=== PATIENT | female | born 1990 | race African-American/Black ===

== ENCOUNTER 2016-09-07 13:48 | Emergency (ER) | payer OTHER ==
[2016-09-07 14:00] VITALS: RESP 18
--- NOTE | 2016-09-07 14:50 | ED ---
Female Urogenital HPI - General Chief complaint: Urogenital Stated complaint: Female Time Seen by Provider: 09/07/16 14:34 Source: patient, RN notes reviewed Mode of arrival: ambulatory Limitations: no limitations - History of Present Illness Initial comments: 26-year-old female presents emergency Department chief complaint of vaginal discharge. Patient states she's had a clearish whitish discharge for the past 2 days. Patient states she has a history of BV and she states it seems like that. Patient states she hasn't had any fever chills any vomiting with this. Patient is not concerned about STDs. Patient denies any changes in urination. Patient states that she just is here for treatment. Patient denies any other symptoms at this time.Patient denies any recent fever, chills, shortness of breath, chest pain, back pain, abdominal pain, nausea vomiting, numbness or tingling, dysuria or hematuria, constipation or diarrhea, headaches or visual changes, or any other current symptoms. Last Menstrual Period: 08/29/16 - Related Data Home Medications Medication Instructions Recorded Confirmed No Known Home Medications [No 09/07/16 09/07/16 Known Home Medications] Allergies Allergy/AdvReac Type Severity Reaction Status Date / Time No Known Allergies Allergy Verified 09/07/16 14:41 Review of Systems ROS Statement: Those systems with pertinent positive or pertinent negative responses have been documented in the HPI. ROS Other: All systems not noted in ROS Statement are negative. Past Medical History Past Medical History: No Reported History History of Any Multi-Drug Resistant Organisms: None Reported Past Surgical History: No Surgical Hx Reported Past Psychological History: No Psychological Hx Reported Smoking Status: Current every day smoker Past Alcohol Use History: Occasional Past Drug Use History: None Reported General Exam Limitations: no limitations General appearance: alert, in no apparent distress ENT exam: Present: normal exam, mucous membranes moist Neck exam: Present: normal inspection. Absent: tenderness, meningismus, lymphadenopathy Respiratory exam: Present: normal lung sounds bilaterally Cardiovascular Exam: Present: regular rate, normal rhythm, normal heart sounds. Absent: systolic murmur, diastolic murmur, rubs, gallop, clicks GI/Abdominal exam: Present: soft, normal bowel sounds. Absent: distended, tenderness, guarding, rebound, rigid External exam: Present: normal external exam Speculum exam: Present: vaginal discharge (Family) By manual exam: Present: normal by manual exam Extremities exam: Present: normal inspection, full ROM, normal capillary refill. Absent: tenderness, pedal edema, joint swelling, calf tenderness Back exam: Present: normal inspection Neurological exam: Present: alert, oriented X3, CN II-XII intact. Absent: motor sensory deficit Psychiatric exam: Present: normal affect, normal mood Skin exam: Present: warm, dry, intact, normal color. Absent: rash Course Vital Signs 09/07/16 13:57 Temperature 97.8 F Pulse Rate 92 Respiratory 18 Rate Blood Pressure 99/58 O2 Sat by Pulse 100 Oximetry Medical Decision Making - Medical Decision Making 26-year-old female presents emergency department with a chief complaint of what appears to be the on pelvic exam. This was a patient clindamycin gel. We discussed return parameters and follow-up. We did tested for STDs since she is not on prophylactic treatment. We discussed follow-up on these results. We discussed all the patient's questions. She stated that she understood. This time the patient will be discharged home. - Lab Data Lab Results 09/07/16 09/07/16 Range/Units 14:52 14:52 Urine Color Yellow Urine Appearance Clear (Clear) Urine pH 6.5 (5.0-8.0) Ur Specific [place] 1.023 (1.001-1.035) Urine Protein Trace H (Negative) Urine Glucose (UA) Negative (Negative) Urine Ketones Negative (Negative) Urine Blood Negative (Negative) Urine Nitrate Negative (Negative) Urine Bilirubin Negative (Negative) Urine Urobilinogen <2.0 (<2.0) mg/dL Ur Leukocyte Esterase Trace H (Negative) Urine WBC 2 (0-5) /hpf Ur Squamous Epith Cells 2 (0-4) /hpf Amorphous Sediment Rare H (None) /hpf Urine Mucus Many H (None) /hpf Urine HCG, Qual Not Detected (Not Detectd) Disposition Clinical Impression: Bacterial vaginosis Disposition: HOME SELF-CARE Condition: Stable Instructions: Bacterial Vaginosis (ED) Additional Instructions: Please use medication as discussed. Please follow up with family doctor if symptoms have not improved over the next two days. Please return to the emergency room if your symptoms increase or worsen or for any other concerns. Referrals: Leticia Lynne MD [Primary Care Provider] - 1-2 days Time of Disposition: 15:09
[2016-09-07 15:07] LABS: Amorphous Sediment,Urine Rare /hpf; Appearance,Urine Clear (Clear); Bilirubin,Urine Negative (Negative); Glucose,Urine (UA) Negative (Negative); Ketones,Urine Negative (Negative); Leukocyte Esterase,Urine Trace (Negative); Mucus,Urine Many /hpf; Nitrite,Urine Negative (Negative); PH, Urine 6.5 (5.0-8.0); Particle Count 14673; Protein,Urine Trace (Negative); Specific Gravity,Urine 1.023 (1.001-1.035); Squamous Epithelial Cell,Urine 2 /hpf (0-4); UA Billing (MACRO vs. MICRO) MICRO; Urobilinogen,Urine <2.0 mg/dL (<2.0); WBC,Urine 2 /hpf (0-5)
[2016-09-07 15:22] VITALS: BP 98/66; PULSE 79; TEMP 98.5
== END 2016-09-07 15:22 | disposition home or self-care (01) ==
LOC: EC 13:48
DX: A56.02 Chlamydial vulvovaginitis (principal); F17.200 Nicotine dependence, unspecified, uncomplicated
CPT/HCPCS: 81001; 81025; 87070; 87205; 87491; 87591; 87808; 99283

== ENCOUNTER 2016-10-27 10:30 | Emergency (ER) | payer OTHER ==
[2016-10-27 10:44] VITALS: TEMP 98.2
--- NOTE | 2016-10-27 11:50 | ED ---
Female Urogenital HPI - General Chief complaint: Vaginal Bleeding Stated complaint: Bleeding/poss Time Seen by Provider: 10/27/16 10:45 Source: patient, RN notes reviewed Mode of arrival: ambulatory Limitations: no limitations - History of Present Illness Initial comments: 26-year-old female presents to the emergency department with 2 complaints. First patient complains of vaginal bleeding. Patient states that she started vaginal bleeding today. Patient states that she believes she may be so she would like to be tested. Patient states her second complaint she's noticed a nodule on the right breast. Patient states that she hasn't had any drainage or discharge from the breast. Patient states that it is not tender to touch. Patient has any redness or swelling over the area. Patient admits to history of this in the past was told it wasn't inflamed. But states she wanted the splint checked as well. Patient stated she is not currently having any other symptoms.Patient denies any recent fever, chills, shortness of breath, chest pain, back pain, abdominal pain, nausea vomiting, numbness or tingling, dysuria or hematuria, constipation or diarrhea, headaches or visual changes, or any other current symptoms. Last Menstrual Period: 09/24/16 - Related Data Home Medications Medication Instructions Recorded Confirmed No Known Home Medications [No 09/07/16 10/27/16 Known Home Medications] Allergies Allergy/AdvReac Type Severity Reaction Status Date / Time No Known Allergies Allergy Verified 10/27/16 11:10 Review of Systems ROS Statement: Those systems with pertinent positive or pertinent negative responses have been documented in the HPI. ROS Other: All systems not noted in ROS Statement are negative. Past Medical History Past Medical History: No Reported History History of Any Multi-Drug Resistant Organisms: None Reported Past Surgical History: No Surgical Hx Reported Past Psychological History: No Psychological Hx Reported Smoking Status: Current every day smoker Past Alcohol Use History: Occasional Past Drug Use History: None Reported General Exam Limitations: no limitations General appearance: alert, in no apparent distress Head exam: Present: atraumatic, normocephalic, normal inspection ENT exam: Present: normal exam, mucous membranes moist Neck exam: Present: normal inspection. Absent: tenderness, meningismus, lymphadenopathy Respiratory exam: Present: normal lung sounds bilaterally, other (She has a nodular area to palpation of the left upper quadrant of the right breast.). Absent: respiratory distress, wheezes, rales, rhonchi, stridor Cardiovascular Exam: Present: regular rate, normal rhythm, normal heart sounds. Absent: systolic murmur, diastolic murmur, rubs, gallop, clicks Neurological exam: Present: alert, oriented X3, CN II-XII intact. Absent: motor sensory deficit Psychiatric exam: Present: normal affect, normal mood Skin exam: Present: warm, dry, intact, normal color. Absent: rash Course Vital Signs 10/27/16 10:41 Temperature 98.2 F Pulse Rate 99 Respiratory 20 Rate Blood Pressure 95/52 O2 Sat by Pulse 100 Oximetry Medical Decision Making - Medical Decision Making 26-year-old female presents emergency Department chief complaint concern for as well as a nodule noted in the right breast. A verbal report was given patient's ultrasound that showed dense breast tissue however there does not appear to be any masses or cystic lesions. He discussed follow-up with OB/ [facility] [employer]. We discussed this with the patient. We did discuss that her test is negative. Patient states that she understood. This time she'll be discharged home and all her questions have been answered. She'll be discharged. - Lab Data Lab Results 10/27/16 10/27/16 Range/Units 11:32 11:32 Urine Color Yellow Urine Appearance Cloudy H (Clear) Urine pH 8.5 H (5.0-8.0) Ur Specific [place] 1.020 (1.001-1.035) Urine Protein 1+ H (Negative) Urine Glucose (UA) Negative (Negative) Urine Ketones Negative (Negative) Urine Blood Negative (Negative) Urine Nitrate Negative (Negative) Urine Bilirubin Negative (Negative) Urine Urobilinogen <2.0 (<2.0) mg/dL Ur Leukocyte Esterase Negative (Negative) Urine WBC 1 (0-5) /hpf Ur Squamous Epith Cells 1 (0-4) /hpf Amorphous Sediment Rare H (None) /hpf Urine Mucus Rare H (None) /hpf Urine HCG, Qual Not Detected (Not Detectd) - Radiology Data Radiology results: image reviewed Disposition Clinical Impression: Irregular menses, Dense breast tissue Disposition: HOME SELF-CARE Condition: Stable Instructions: Menstruation (ED) Additional Instructions: Please use medication as discussed. Please follow up with family doctor if symptoms have not improved over the next two days. Please return to the emergency room if your symptoms increase or worsen or for any other concerns. Referrals: Leticia Lynne MD [Primary Care Provider] - 1-2 days Time of Disposition: 12:39
[2016-10-27 12:02] LABS: Amorphous Sediment,Urine Rare /hpf; Appearance,Urine Cloudy (Clear); Bilirubin,Urine Negative (Negative); Glucose,Urine (UA) Negative (Negative); Ketones,Urine Negative (Negative); Leukocyte Esterase,Urine Negative (Negative); Mucus,Urine Rare /hpf; Nitrite,Urine Negative (Negative); PH, Urine 8.5 (5.0-8.0); Particle Count 19374; Protein,Urine 1+ (Negative); Squamous Epithelial Cell,Urine 1 /hpf (0-4); UA Billing (MACRO vs. MICRO) MICRO; Urobilinogen,Urine <2.0 mg/dL (<2.0); WBC,Urine 1 /hpf (0-5)
--- NOTE | 2016-10-27 12:48 | ED ---
Medical Decision Making - Medical Decision Making Plan discharge patient states that she has had vaginal discharge. Patient underwent a pelvic exam with did not show any adnexal tenderness or mass really no discharge on exam she states it was a fishy odor yesterday. She has a history of V. tach. We will treat for that she also states infection. We will give her dose of Diflucan for that as well. - Lab Data Lab Results 10/27/16 10/27/16 Range/Units 11:32 11:32 Urine Color Yellow Urine Appearance Cloudy H (Clear) Urine pH 8.5 H (5.0-8.0) Ur Specific [place] 1.020 (1.001-1.035) Urine Protein 1+ H (Negative) Urine Glucose (UA) Negative (Negative) Urine Ketones Negative (Negative) Urine Blood Negative (Negative) Urine Nitrate Negative (Negative) Urine Bilirubin Negative (Negative) Urine Urobilinogen <2.0 (<2.0) mg/dL Ur Leukocyte Esterase Negative (Negative) Urine WBC 1 (0-5) /hpf Ur Squamous Epith Cells 1 (0-4) /hpf Amorphous Sediment Rare H (None) /hpf Urine Mucus Rare H (None) /hpf Urine HCG, Qual Not Detected (Not Detectd) Disposition Clinical Impression: Irregular menses, Dense breast tissue, Bacterial vaginosis Disposition: HOME SELF-CARE Condition: Stable Instructions: Menstruation (ED) Additional Instructions: Please use medication as discussed. Please follow up with family doctor if symptoms have not improved over the next two days. Please return to the emergency room if your symptoms increase or worsen or for any other concerns. Prescriptions: Fluconazole [Diflucan] 150 mg PO ONCE #1 tab metroNIDAZOLE 0.75% VAGINAL [Metrogel Vaginal] 1 applic VAGINAL HS #7 tube Referrals: Leticia Lynne MD [Primary Care Provider] - 1-2 days Time of Disposition: 12:47
[2016-10-27 12:58] VITALS: BP 102/53; PULSE 72; RESP 16
--- NOTE | 2016-10-27 14:33 | USB ---
Reason for exam: clinical finding. US Breast Limited RT Right breast ultrasound demonstrates no cystic or solid lesion seen at the 2 o'clor or 12 o'clock sites of palpable abnormality. Scanned from 12-3 o'clock. These results were verbally communicated with the patient and result sheet given to the patient on 10/27/16. ASSESSMENT: Negative, BI-RAD 1 RECOMMENDATION: Routine screening mammogram of both breasts at age 39. (unless clinical indication to start sooner) Manage on a clinical basis with regard to any suspicious palpable sites.
[2016-10-28 10:31] LABS: Chlamydia/GC Source Vaginal
== END 2016-10-27 12:58 | disposition home or self-care (01) ==
LOC: EC 10:30
DX: N92.6 Irregular menstruation, unspecified (principal); R92.2 Inconclusive mammogram; F17.200 Nicotine dependence, unspecified, uncomplicated; N76.0 Acute vaginitis
CPT/HCPCS: 81001; 81025; 87070; 87205; 87491; 87591; 87808; 99284

== ENCOUNTER 2017-02-10 19:00 | Emergency (ER) | payer OTHER ==
--- NOTE | 2017-02-10 20:35 | ED ---
Female Urogenital HPI - General Chief complaint: Urogenital Stated complaint: vaginal discharge, preg Time Seen by Provider: 02/10/17 19:35 Source: patient, RN notes reviewed Mode of arrival: ambulatory Limitations: no limitations - History of Present Illness Initial comments: Patient is 26-year-old female presents to the emergency room for evaluation abnormal vaginal discharge. Patient states over the past 4 days she been having watery vaginal discharge. Patient states she does have a history of bacterial vaginosis. Patient states feels like she has it again. Patient also she's been developing lower pelvic pain. Patient does state that she recently found out she was week and a half ago. Patient takes her last menstrual cycle was 12/09/2016. Patient states she had 2 previous pregnancies both vaginal births. Patient denies any history of ectopic pregnancies or miscarriages. Patient did state she has some vaginal spotting yesterday that has subsided today. Patient does state that she smokes 5 cigarettes per day. Patient denies nausea or vomiting. Patient denies any pain or burning during urination, trouble urinating or blood in urine. Patient does state she has a history of Chlamydia about a month and a half ago. Patient states she was already treated for it. Patient states she doesn't have an [facility] appointment until the end of this month. Patient denies chest pain shortness of breath. Patient denies nausea or vomiting. Patient denies fevers or chills. Last Menstrual Period: 12/09/16 - Related Data Home Medications Medication Instructions Recorded Confirmed No Known Home Medications [No 02/10/17 02/10/17 Known Home Medications] Allergies Allergy/AdvReac Type Severity Reaction Status Date / Time No Known Allergies Allergy Verified 02/10/17 21:24 Review of Systems ROS Statement: Those systems with pertinent positive or pertinent negative responses have been documented in the HPI. ROS Other: All systems not noted in ROS Statement are negative. Past Medical History Past Medical History: No Reported History History of Any Multi-Drug Resistant Organisms: None Reported Past Surgical History: No Surgical Hx Reported Past Psychological History: No Psychological Hx Reported Smoking Status: Current every day smoker Past Alcohol Use History: Occasional Past Drug Use History: None Reported General Exam - General Exam Comments Initial Comments: laying in exam room, no acute distress. Limitations: no limitations General appearance: alert, in no apparent distress Head exam: Present: atraumatic, normocephalic, normal inspection Eye exam: Present: normal appearance, PERRL, EOMI Pupils: Present: normal accommodation ENT exam: Present: normal exam Neck exam: Present: normal inspection Respiratory exam: Present: normal lung sounds bilaterally. Absent: respiratory distress Cardiovascular Exam: Present: regular rate, normal rhythm, normal heart sounds GI/Abdominal exam: Present: soft, normal bowel sounds. Absent: distended, tenderness, guarding, rebound, rigid External exam: Present: normal external exam Speculum exam: Present: vaginal discharge By manual exam: Present: normal by manual exam Extremities exam: Present: normal inspection Back exam: Present: normal inspection Neurological exam: Present: alert, oriented X3, CN II-XII intact, normal gait Psychiatric exam: Present: normal affect, normal mood Skin exam: Present: warm, dry, intact, normal color. Absent: rash Course Vital Signs 02/10/17 02/10/17 19:30 23:01 Temperature 99.1 F 98.9 F Pulse Rate 80 79 Respiratory 16 18 Rate Blood Pressure 105/51 116/56 O2 Sat by Pulse 100 98 Oximetry Medical Decision Making - Medical Decision Making Patient is a 26-year-old female presents to the emergency room for evaluation of vaginal discharge. Patient also states and having abdominal pain. Ultrasound showed viable at 8 weeks, 2 days. Urinalysis shows no acute findings. Genital cultures pending. Results discussed with patient. Patient states she understands everything that was discussed with her. Return parameters discussed. Case discussed with Dr. Kan. - Lab Data Lab Results 02/10/17 02/10/17 02/10/17 Range/Units 20:40 20:40 20:45 HCG, Quant >733056.0 mIU/mL Urine Color Yellow Urine Appearance Clear (Clear) Urine pH 6.5 (5.0-8.0) Ur Specific [place] 1.020 (1.001-1.035) Urine Protein Negative (Negative) Urine Glucose (UA) Negative (Negative) Urine Ketones Negative (Negative) Urine Blood Negative (Negative) Urine Nitrite Negative (Negative) Urine Bilirubin Negative (Negative) Urine Urobilinogen <2.0 (<2.0) mg/dL Ur Leukocyte Esterase Negative (Negative) Blood Type A Positive Blood Type Recheck No Disposition Clinical Impression: Vaginal Discharge, Disposition: HOME SELF-CARE Condition: Good Instructions: Vaginal Discharge (ED) Additional Instructions: Take Tylenol as needed for pain. Please follow-up with [facility]. If any new symptom arises or symptoms worsen, return to ER as soon as possible. Referrals: Leticia Lynne MD [Primary Care Provider] - 1-2 days Time of Disposition: 22:49
[2017-02-10 21:02] LABS: Appearance,Urine Clear (Clear); Bilirubin,Urine Negative (Negative); Glucose,Urine (UA) Negative (Negative); Ketones,Urine Negative (Negative); Leukocyte Esterase,Urine Negative (Negative); Nitrite,Urine Negative (Negative); PH, Urine 6.5 (5.0-8.0); Protein,Urine Negative (Negative); UA Billing (MACRO vs. MICRO) CHEM; Urobilinogen,Urine <2.0 mg/dL (<2.0)
--- NOTE | 2017-02-10 21:33 | US ---
EXAMINATION TYPE: US OB <= 14 wk fetus DATE OF EXAM: 02/10/2017 COMPARISON: NONE CLINICAL HISTORY: Pain. EXAM PERFORMED: Transabdominal (TA) EXAM MEASUREMENTS: GESTATIONAL AGE / DATING Physician Established: Not established Dates by LMP: (9 weeks/0 days) EDC: 09/15/2017 Dates by First Scan: No previous Dates by Current Scan for: (8 weeks/2 days) EDC: 09/20/2017 MATERNAL ANATOMY Uterus: 10.2 x 7.0 x 7.5 cm Right Ovary: 3.2 x 2.1 x 2.2 cm Left Ovary: 2.7 x 1.5 x 2.3 cm Post CDS / Adnexa: wnl Presence of free fluid: No Presence of corpus luteal cyst: Yes, right ovary measuring 1.6 x 1.3 x 1.7 cm GESTATION / SURVEY CRL: 1.78 cm (8 weeks/2 days) Yolk Sac (normal less than 6mm): 3 mm Heart Rate: 163 bpm Rhythm: Normal IUP: Viable IUP Date of LMP: 12/09/2016 Beta HcG (if available): Not available at time of exam Viable IUP with an WILFREDO of 09/20/2017 IMPRESSION: The ultrasound gestational age is 8 weeks 2 days. I see no definite complicating process.
[2017-02-10 23:01] VITALS: BP 116/56; PULSE 79; RESP 18; TEMP 98.9
== END 2017-02-10 23:03 | disposition home or self-care (01) ==
LOC: EC 19:00
DX: O99.89 Other specified diseases and conditions complicating pregnancy, childbirth and the puerperium (principal); O99.331 Smoking (tobacco) complicating pregnancy, first trimester; N89.8 Other specified noninflammatory disorders of vagina; R10.2 Pelvic and perineal pain; F17.200 Nicotine dependence, unspecified, uncomplicated; Z3A.08 8 weeks gestation of pregnancy
CPT/HCPCS: 36415; 76801; 81003; 84702; 86900; 86901; 87070; 87086; 87205; 87491; 87591; 99284

== ENCOUNTER 2017-03-08 20:09 | Emergency (ER) | payer OTHER ==
[2017-03-08] MEDS ORDERED: KETOROLAC 30 MG/ML 1 ML VIAL IVP STA (20:31)
[2017-03-08] MEDS ORDERED: SODIUM CHLORIDE 0.9% 1,000 ML IV ONE (20:34)
--- NOTE | 2017-03-08 20:34 | ED ---
Abdominal Pain HPI - General Chief Complaint: Abdominal Pain Stated Complaint: Abd Pain Time Seen by Provider: 03/08/17 20:25 Source: patient Mode of arrival: ambulatory Limitations: no limitations - History of Present Illness Initial Comments: This is a 26-year-old female who presents emergency department for lower abdominal pain. She states that it started earlier today and is gradually worsened. She describes it as a sharp stabbing pain that radiates to her right back. She denies any associated nausea, vomiting, diarrhea, vaginal bleeding, vaginal discharge, dysuria, or hematuria. She states that she had an elective approximately 3 weeks ago. She came in today because the pain was becoming worse. She denies any other complaints. - Related Data Previous Rx's Medication Instructions Recorded Acetaminophen with Codeine 1 tab PO Q4H PRN #15 tab 03/08/17 [Tylenol w/codeine #3] Allergies Allergy/AdvReac Type Severity Reaction Status Date / Time No Known Allergies Allergy Verified 03/08/17 20:47 Review of Systems ROS Statement: Those systems with pertinent positive or pertinent negative responses have been documented in the HPI. ROS Other: All systems not noted in ROS Statement are negative. Past Medical History Past Medical History: No Reported History History of Any Multi-Drug Resistant Organisms: None Reported Past Surgical History: No Surgical Hx Reported Past Psychological History: No Psychological Hx Reported Smoking Status: Current every day smoker Past Alcohol Use History: Occasional Past Drug Use History: None Reported General Exam - General Exam Comments Initial Comments: Constitutional: Awake alert Appears comfortable Head: Normocephalic atraumatic Eyes: no conjunctival injection No scleral icterus EOMI Neck: No JVD Supple Heart: Regular rate rhythm normal S1-S2 no murmurs Lungs: Clear to auscultation bilaterally No wheezing No rales Abdomen: Soft nondistended tenderness to palpation in the bilateral pelvis right greater than left Extremities: Non edematous DP pulses intact Radial pulses intact Neuro: A&Ox3 No focal neurologic deficits Psych: Appropriate mood and affect Limitations: no limitations Course Vital Signs 03/08/17 03/08/17 20:18 22:05 Temperature 99.2 F Pulse Rate 115 H 84 Respiratory 20 18 Rate Blood Pressure 109/63 101/60 O2 Sat by Pulse 100 100 Oximetry Medical Decision Making - Medical Decision Making This is a 26-year-old female presents emergency department for pelvic pain. She is found to have a ruptured right hemorrhagic ovarian cyst. No evidence for torsion. She did have a positive hCG however this is down trending from previous and she had an elective 3 weeks ago. Her hCG was 98. I did speak with OB on-call, Dr. Carson who stated that this was consistent with her recent . Going to send her home with Tylenol 3 and she can follow- up with her [employer]. If she has worsening or changing symptoms she can return emergency Department. All questions were answered. - Lab Data Result diagrams: 03/08/17 21:04 03/08/17 21:04 Lab Results 03/08/17 03/08/17 03/08/17 Range/Units 21:04 21:04 21:04 WBC 13.8 H (3.8-10.6) k/uL RBC 4.02 (3.80-5.40) m/uL Hgb 13.2 (11.4-16.0) gm/dL Hct 37.7 (34.0-46.0) % MCV 93.6 (80.0-100.0) fL MCH 32.9 (25.0-35.0) pg MCHC 35.1 (31.0-37.0) g/dL RDW 12.4 (11.5-15.5) % Plt Count 174 (150-450) k/uL Neutrophils % 74 % Lymphocytes % 18 % Monocytes % 3 % Eosinophils % 3 % Basophils % 0 % Neutrophils # 10.1 H (1.3-7.7) k/uL Lymphocytes # 2.5 (1.0-4.8) k/uL Monocytes # 0.5 (0-1.0) k/uL Eosinophils # 0.4 (0-0.7) k/uL Basophils # 0.0 (0-0.2) k/uL Sodium 140 (137-145) mmol/L Potassium 4.3 (3.5-5.1) mmol/L Chloride 109 H (98-107) mmol/L Carbon Dioxide 21 L (22-30) mmol/L Anion Gap 10 mmol/L BUN 13 (7-17) mg/dL Creatinine 0.66 (0.52-1.04) mg/dL Est GFR (MDRD) Af Amer >60 (>60 ml/min/1.73 sqM) Est GFR (MDRD) Non-Af >60 (>60 ml/min/1.73 sqM) Glucose 82 (74-99) mg/dL Calcium 8.9 (8.4-10.2) mg/dL HCG, Quant mIU/mL Urine Color Urine Appearance (Clear) Urine pH (5.0-8.0) Ur Specific [place] (1.001-1.035) Urine Protein (Negative) Urine Glucose (UA) (Negative) Urine Ketones (Negative) Urine Blood (Negative) Urine Nitrite (Negative) Urine Bilirubin (Negative) Urine Urobilinogen (<2.0) mg/dL Ur Leukocyte Esterase (Negative) Urine RBC (0-5) /hpf Urine WBC (0-5) /hpf Ur Squamous Epith Cells (0-4) /hpf Urine Bacteria (None) /hpf Urine Mucus (None) /hpf Urine HCG, Qual Detected (Not Detectd) 03/08/17 03/08/17 Range/Units 21:04 21:04 WBC (3.8-10.6) k/uL RBC (3.80-5.40) m/uL Hgb (11.4-16.0) gm/dL Hct (34.0-46.0) % MCV (80.0-100.0) fL MCH (25.0-35.0) pg MCHC (31.0-37.0) g/dL RDW (11.5-15.5) % Plt Count (150-450) k/uL Neutrophils % % Lymphocytes % % Monocytes % % Eosinophils % % Basophils % % Neutrophils # (1.3-7.7) k/uL Lymphocytes # (1.0-4.8) k/uL Monocytes # (0-1.0) k/uL Eosinophils # (0-0.7) k/uL Basophils # (0-0.2) k/uL Sodium (137-145) mmol/L Potassium (3.5-5.1) mmol/L Chloride (98-107) mmol/L Carbon Dioxide (22-30) mmol/L Anion Gap mmol/L BUN (7-17) mg/dL Creatinine (0.52-1.04) mg/dL Est GFR (MDRD) Af Amer (>60 ml/min/1.73 sqM) Est GFR (MDRD) Non-Af (>60 ml/min/1.73 sqM) Glucose (74-99) mg/dL Calcium (8.4-10.2) mg/dL HCG, Quant 98.7 mIU/mL Urine Color Yellow Urine Appearance Cloudy H (Clear) Urine pH 7.0 (5.0-8.0) Ur Specific [place] 1.023 (1.001-1.035) Urine Protein Negative (Negative) Urine Glucose (UA) Negative (Negative) Urine Ketones Negative (Negative) Urine Blood Negative (Negative) Urine Nitrite Negative (Negative) Urine Bilirubin Negative (Negative) Urine Urobilinogen <2.0 (<2.0) mg/dL Ur Leukocyte Esterase Negative (Negative) Urine RBC <1 (0-5) /hpf Urine WBC 1 (0-5) /hpf Ur Squamous Epith Cells 2 (0-4) /hpf Urine Bacteria Rare H (None) /hpf Urine Mucus Rare H (None) /hpf Urine HCG, Qual (Not Detectd) Disposition Clinical Impression: Hemorrhagic ovarian cyst Disposition: HOME SELF-CARE Condition: Stable Instructions: Ovarian Cyst (ED) Prescriptions: Acetaminophen with Codeine [Tylenol w/codeine #3] 1 tab PO Q4H PRN #15 tab PRN Reason: Pain Referrals: Leticia Lynne MD [Primary Care Provider] - 1-2 days Mer[facility] Lemus [facility] [REFERRING] - 1-2 days
[2017-03-08 21:17] LABS: Basophils % (A) 0 %; CHCM 33.3; Eosinophils # (A) 0.4 k/uL (0-0.7); Eosinophils % (A) 3 %; HCT 37.7 % (34.0-46.0); HDW 2.07; HGB 13.2 gm/dL (11.4-16.0); Luc # (Auto) 0.19; Luc % (Auto) 1; Lymphocytes # (A) 2.5 k/uL (1.0-4.8); Lymphocytes % (A) 18 %; MCH 32.9 pg (25.0-35.0); MCHC 35.1 g/dL (31.0-37.0); MCV 93.6 fL (80.0-100.0); Monocytes # (A) 0.5 k/uL (0-1.0); Monocytes % (A) 3 %; Neutrophils # (A) 10.1 k/uL (1.3-7.7); Neutrophils % (A) 74 %; RBC 4.02 m/uL (3.80-5.40); RDW 12.4 % (11.5-15.5); WBC 13.8 k/uL (3.8-10.6); WBC (Perox) 14.34
[2017-03-08 21:19] LABS: Appearance,Urine Cloudy (Clear); Bacteria,Urine Rare /hpf; Bilirubin,Urine Negative (Negative); Glucose,Urine (UA) Negative (Negative); Ketones,Urine Negative (Negative); Leukocyte Esterase,Urine Negative (Negative); Mucus,Urine Rare /hpf; Nitrite,Urine Negative (Negative); Particle Count 2472; Protein,Urine Negative (Negative); RBC,Urine <1 /hpf (0-5); Specific Gravity,Urine 1.023 (1.001-1.035); Squamous Epithelial Cell,Urine 2 /hpf (0-4); UA Billing (MACRO vs. MICRO) MICRO; Urobilinogen,Urine <2.0 mg/dL (<2.0); WBC,Urine 1 /hpf (0-5)
[2017-03-08 21:25] LABS: Anion Gap 10 mmol/L; Blood Urea Nitrogen 13 mg/dL (7-17); Calcium 8.9 mg/dL (8.4-10.2); Carbon Dioxide 21 mmol/L (22-30); Chloride 109 mmol/L (98-107); Glucose 82 mg/dL (74-99); Non-African American GFR(MDRD) >60 (>60 ml/min/1.73 sqM); Potassium 4.3 mmol/L (3.5-5.1); Sodium 140 mmol/L (137-145)
--- NOTE | 2017-03-08 22:00 | US ---
EXAMINATION TYPE: US transvaginal DATE OF EXAM: 03/08/2017 COMPARISON: NONE CLINICAL HISTORY: pelvic pain, worse on the right. Patient had an elective about 3 weeks ago . TECHNIQUE: Transvaginal (TV) Date of LMP: 12/09/2016 EXAM MEASUREMENTS: Uterus: 8.3 x 4.2 x 4.8 cm Endometrial Stripe: 0.5 cm Right Ovary: 7.4 x 3.9 x 4.0 cm Left Ovary: 2.9 x 1.6 x 2.3 cm 1. Uterus: Anteverted wnl 2. Endometrium: wnl 3. Right Ovary: Complex area visualized measuring 4.3 x 3.8 x 3.7 cm 4. Left Ovary: wnl, free fluid visualized adjacent to ovary Spectral, color and waveform doppler imaging shows good arterial and venous flow within the ovaries ; there is no evidence for ovarian torsion. 5. Bilateral Adnexa: Free fluid visualized bilaterally 6. Posterior cul-de-sac: Free fluid visualized IMPRESSION: There is mild to moderate free fluid in the pelvis. Normal uterus and endometrium. Normal arterial waveform is seen in the ovarian arteries on the color Doppler images. No evidence of torsio n. There is complex cystic enlargement of the right ovary that measures 7.4 x 4 cm. This could relate to hemorrhagic cyst.
[2017-03-08 22:10] VITALS: RESP 18
[2017-03-08] MEDS ORDERED: Acetaminophen-Codeine 300-30mg TAB PO STA (22:11)
[2017-03-08 22:59] VITALS: BP 102/58; PULSE 83; TEMP 97.9
== END 2017-03-08 22:58 | disposition home or self-care (01) ==
LOC: EC 20:09
DX: N83.201 Unspecified ovarian cyst, right side (principal); F17.200 Nicotine dependence, unspecified, uncomplicated
CPT/HCPCS: 36415; 80048; 85025; 81001; 81025; 84702; 93975; 76830; 96374; 96361; 99284; J1885

== ENCOUNTER 2017-06-02 18:50 | Emergency (ER) | payer OTHER ==
--- NOTE | 2017-06-02 20:17 | ED ---
General Adult HPI - General Chief complaint: Abdominal Pain Stated complaint: Vag discharge/Abd pain Time Seen by Provider: 06/02/17 19:58 Source: patient, RN notes reviewed Mode of arrival: ambulatory Limitations: no limitations - History of Present Illness Initial comments: This is a 19-year-old female who presents to the Emergency Department today with complaint of vaginal discharge and lower abdominal pain. She claims that 3 weeks ago she was in the ER at [facility] with an ovarian cyst rupture. She attributes the lower abdominal pain to the ovarian cyst rupture. She is yet to follow-up with her PCP. Describes vaginal discharge as a thin, white watery substance with an odor. She admits to having a history of frequent bacterial vaginosis infections. Patient states that she is unable to take the Flagyl oral medication. She cannot keep them down and throws them up. She requests to have metronidazole gel prescribed. She is sexually active but just finished her period so claims there is no possibility that she is . - Related Data Previous Rx's Medication Instructions Recorded metroNIDAZOLE 0.75% VAGINAL 1 applic VAGINAL HS #1 tube 06/02/17 [Metrogel Vaginal] Allergies Allergy/AdvReac Type Severity Reaction Status Date / Time No Known Allergies Allergy Verified 06/02/17 20:27 Review of Systems ROS Statement: Those systems with pertinent positive or pertinent negative responses have been documented in the HPI. ROS Other: All systems not noted in ROS Statement are negative. Past Medical History Past Medical History: No Reported History History of Any Multi-Drug Resistant Organisms: None Reported Past Surgical History: No Surgical Hx Reported Past Psychological History: No Psychological Hx Reported Smoking Status: Current every day smoker Past Alcohol Use History: Occasional Past Drug Use History: None Reported General Exam - General Exam Comments Initial Comments: General: Awake and alert, well-developed; in no apparent distress. HEENT: Head atraumatic, normocephalic. Pupils are equal, round and reactive to light. Extraocular movements intact. Oropharynx moist without erythema or exudate. Neck: Supple. Normal ROM. No JVD. Trachea midline. No adenopathy. Cardiovascular: Regular rate and rhythm. No murmurs, rubs or gallops. Chest symmetrical. Respiratory: Lungs clear to auscultation bilaterally. No wheezes, rales or rhonchi. Normal respiratory efffort with no use of accessory muscles. Abdomen: Soft, non-tender, non-distended. No rigidity, rebound or guarding. Normal bowel sounds in all 4 quadrants. : Normal external genitalia. On speculum exam vaginal tissue is normal. No vaginal bleeding. There is a moderate amount of thin, white discharge in vaginal vault and on cervical os. Cervix is clear of lesions. Fishy odor noted on exam. Skin: [place], warm and dry. Neurological: Alert and oriented x3. CN II-XII grossly intact. Speech is fluent and answers are appropriate. No focal neuro deficits. Psychiatric: Normal mood and affect. No overt signs of depression or anxiety noted. Limitations: no limitations Course Vital Signs 06/02/17 19:18 Temperature 98.7 F Pulse Rate 75 Respiratory 18 Rate Blood Pressure 106/58 O2 Sat by Pulse 100 Oximetry Medical Decision Making - Medical Decision Making Patient is doing well and is ready be discharged home. Patient has a history of frequent bacterial vaginosis infections. Physical exam correlates with diagnosis of bacterial vaginosis. Patient requests for metronidazole vaginal gel to be prescribed. Disposition Clinical Impression: Bacterial vaginosis Disposition: HOME SELF-CARE Condition: Good Instructions: Bacterial Vaginosis (ED) Prescriptions: metroNIDAZOLE 0.75% VAGINAL [Metrogel Vaginal] 1 applic VAGINAL HS #1 tube Referrals: Leticia Lynne MD [Primary Care Provider] - 1-2 days
[2017-06-02 20:45] LABS: Appearance,Urine Clear (Clear); Bilirubin,Urine Negative (Negative); Glucose,Urine (UA) Negative (Negative); Ketones,Urine Negative (Negative); Leukocyte Esterase,Urine Negative (Negative); Nitrite,Urine Negative (Negative); PH, Urine 6.5 (5.0-8.0); Protein,Urine Negative (Negative); Specific Gravity,Urine 1.017 (1.001-1.035); UA Billing (MACRO vs. MICRO) CHEM; Urobilinogen,Urine <2.0 mg/dL (<2.0)
[2017-06-02 21:33] VITALS: BP 113/70; PULSE 74; RESP 17; TEMP 98.2
== END 2017-06-02 21:43 | disposition home or self-care (01) ==
LOC: EC 18:50
DX: N76.0 Acute vaginitis (principal); F17.200 Nicotine dependence, unspecified, uncomplicated
CPT/HCPCS: 81003; 81025; 99284

== ENCOUNTER 2017-10-18 14:35 | Emergency (ER) | payer OTHER ==
[2017-10-18] MEDS ORDERED: SODIUM CHLORIDE 0.9% 500 ML IV STA (17:25)
[2017-10-18] MEDS ORDERED: ACETAMINOPHEN TAB 325 MG TAB PO STA (17:25)
--- NOTE | 2017-10-18 17:29 | ED ---
General Adult HPI - General Chief complaint: Vaginal Bleeding Stated complaint: abdominal pain/vaginal bleeding-early Time Seen by Provider: 10/18/17 17:14 Source: patient Mode of arrival: ambulatory Limitations: no limitations - History of Present Illness Initial comments: 27-year-old female patient presents to the emergency department today for evaluation of vaginal bleeding and abdominal cramping. Patient states that she had a positive urine test on Wednesday. Patient states her last period was at the end of August. Patient is A1, with elective . Patient states that yesterday she had some lower abdominal and lower back pain that seemed to be radiating into her rectum. She states that today she started spotting while at work this morning. She states that throughout the day the breathing has become a little more heavy, she has not had to change her pad yet at this point. She denies any hematuria, dysuria, urinary frequency , urinary urgency. She denies any constipation or diarrhea. Denies any nausea or vomiting. Denies any fevers or chills. Patient denies any recent rash, shortness breath, chest pain, back pain, numbness, tingling, dizziness, weakness , headache, visual changes, or any other complaints. - Related Data Home Medications Medication Instructions Recorded Confirmed No Known Home Medications [No 10/18/17 10/18/17 Known Home Medications] Allergies Allergy/AdvReac Type Severity Reaction Status Date / Time No Known Allergies Allergy Verified 10/18/17 17:28 Review of Systems ROS Statement: Those systems with pertinent positive or pertinent negative responses have been documented in the HPI. ROS Other: All systems not noted in ROS Statement are negative. Past Medical History Past Medical History: No Reported History History of Any Multi-Drug Resistant Organisms: None Reported Past Surgical History: No Surgical Hx Reported Past Psychological History: No Psychological Hx Reported Smoking Status: Current every day smoker Past Alcohol Use History: Occasional Past Drug Use History: None Reported General Exam Limitations: no limitations General appearance: alert, in no apparent distress, other (This is a well- developed, well-nourished adult female patient in no acute distress. Vital signs upon presentation are temperature 97.7F, pulse 72, respirations 18, blood pressure 98/51, pulse ox 100% on room air.) Eye exam: Present: normal appearance, PERRL, EOMI. Absent: scleral icterus, conjunctival injection, periorbital swelling ENT exam: Present: normal exam, normal oropharynx, mucous membranes moist Respiratory exam: Present: normal lung sounds bilaterally. Absent: respiratory distress, wheezes, rales, rhonchi, stridor Cardiovascular Exam: Present: regular rate, normal rhythm, normal heart sounds. Absent: systolic murmur, diastolic murmur, rubs, gallop, clicks GI/Abdominal exam: Present: soft, tenderness (Mild right lower quadrant tenderness), normal bowel sounds. Absent: distended, guarding, rebound, rigid Neurological exam: Present: alert, oriented X3, CN II-XII intact Psychiatric exam: Present: normal affect, normal mood Skin exam: Present: warm, dry, intact, normal color. Absent: rash Course Vital Signs 10/18/17 10/18/17 15:04 19:27 Temperature 97.7 F 98.2 F Pulse Rate 72 75 Respiratory 18 17 Rate Blood Pressure 98/51 110/56 O2 Sat by Pulse 100 100 Oximetry Medical Decision Making - Medical Decision Making 27-year-old female patient presents to the emergency department today for complaints of vaginal bleeding and lower abdominal cramping. Patient did have a positive test on Wednesday. Physical examination reveals some lower abdominal tenderness. Pelvic exam was performed and did show a small amount of intravaginal bleeding. There is no evidence of vaginal discharge or cervical erythema. Cultures were obtained and sent. Labs are reviewed and did show a hCG quantitative result of 1614. Urine showed a cloudy appearance with trace protein, moderate blood, 7 squamous epithelial cells, occasional bacteria and moderate mucus. This was sent for culture. Ultrasound was obtained and showed no intrauterine at this time. Did show a right ovarian cyst. I did discuss findings with the patient. Did discuss with her the possibility of a threatened . She is instructed to obtain repeat hCG level in 3 days. She is instructed to call her [employer] as soon as possible. Instructed to return here immediately for any new, worsening, or concerning symptoms. She verbalizes understanding and agrees with this plan. - Lab Data Result diagrams: 10/18/17 17:33 10/18/17 17:33 Lab Results 10/18/17 10/18/17 10/18/17 Range/Units 17:33 17:33 17:33 WBC 6.7 (3.8-10.6) k/uL RBC 4.10 (3.80-5.40) m/uL Hgb 12.2 (11.4-16.0) gm/dL Hct 39.8 (34.0-46.0) % MCV 96.9 (80.0-100.0) fL MCH 29.7 (25.0-35.0) pg MCHC 30.6 L (31.0-37.0) g/dL RDW 12.0 (11.5-15.5) % Plt Count 132 L (150-450) k/uL Neutrophils % 56 % Lymphocytes % 34 % Monocytes % 5 % Eosinophils % 4 % Basophils % 0 % Neutrophils # 3.7 (1.3-7.7) k/uL Lymphocytes # 2.3 (1.0-4.8) k/uL Monocytes # 0.3 (0-1.0) k/uL Eosinophils # 0.2 (0-0.7) k/uL Basophils # 0.0 (0-0.2) k/uL Sodium 141 (137-145) mmol/L Potassium 3.7 (3.5-5.1) mmol/L Chloride 107 (98-107) mmol/L Carbon Dioxide 26 (22-30) mmol/L Anion Gap 8 mmol/L BUN 8 (7-17) mg/dL Creatinine 0.65 (0.52-1.04) mg/dL Est GFR (MDRD) Af Amer >60 (>60 ml/min/1.73 sqM) Est GFR (MDRD) Non-Af >60 (>60 ml/min/1.73 sqM) Glucose 82 (74-99) mg/dL Calcium 9.7 (8.4-10.2) mg/dL Total Bilirubin 0.2 (0.2-1.3) mg/dL AST 19 (14-36) U/L ALT 20 (9-52) U/L Alkaline Phosphatase 44 (38-126) U/L Total Protein 7.1 (6.3-8.2) g/dL Albumin 4.1 (3.5-5.0) g/dL HCG, Quant 1614.1 mIU/mL Urine Color Urine Appearance (Clear) Urine pH (5.0-8.0) Ur Specific [place] (1.001-1.035) Urine Protein (Negative) Urine Glucose (UA) (Negative) Urine Ketones (Negative) Urine Blood (Negative) Urine Nitrite (Negative) Urine Bilirubin (Negative) Urine Urobilinogen (<2.0) mg/dL Ur Leukocyte Esterase (Negative) Urine RBC (0-5) /hpf Urine WBC (0-5) /hpf Ur Squamous Epith Cells (0-4) /hpf Urine Bacteria (None) /hpf Urine Mucus (None) /hpf Trichomonas Ag (Rapid) (Negative) Blood Type A Positive Blood Type Recheck No 10/18/17 10/18/17 Range/Units 17:40 19:25 WBC (3.8-10.6) k/uL RBC (3.80-5.40) m/uL Hgb (11.4-16.0) gm/dL Hct (34.0-46.0) % MCV (80.0-100.0) fL MCH (25.0-35.0) pg MCHC (31.0-37.0) g/dL RDW (11.5-15.5) % Plt Count (150-450) k/uL Neutrophils % % Lymphocytes % % Monocytes % % Eosinophils % % Basophils % % Neutrophils # (1.3-7.7) k/uL Lymphocytes # (1.0-4.8) k/uL Monocytes # (0-1.0) k/uL Eosinophils # (0-0.7) k/uL Basophils # (0-0.2) k/uL Sodium (137-145) mmol/L Potassium (3.5-5.1) mmol/L Chloride (98-107) mmol/L Carbon Dioxide (22-30) mmol/L Anion Gap mmol/L BUN (7-17) mg/dL Creatinine (0.52-1.04) mg/dL Est GFR (MDRD) Af Amer (>60 ml/min/1.73 sqM) Est GFR (MDRD) Non-Af (>60 ml/min/1.73 sqM) Glucose (74-99) mg/dL Calcium (8.4-10.2) mg/dL Total Bilirubin (0.2-1.3) mg/dL AST (14-36) U/L ALT (9-52) U/L Alkaline Phosphatase (38-126) U/L Total Protein (6.3-8.2) g/dL Albumin (3.5-5.0) g/dL HCG, Quant mIU/mL Urine Color Yellow Urine Appearance Cloudy H (Clear) Urine pH 6.5 (5.0-8.0) Ur Specific [place] 1.018 (1.001-1.035) Urine Protein Trace H (Negative) Urine Glucose (UA) Negative (Negative) Urine Ketones Negative (Negative) Urine Blood Moderate H (Negative) Urine Nitrite Negative (Negative) Urine Bilirubin Negative (Negative) Urine Urobilinogen <2.0 (<2.0) mg/dL Ur Leukocyte Esterase Negative (Negative) Urine RBC 2 (0-5) /hpf Urine WBC 5 (0-5) /hpf Ur Squamous Epith Cells 7 H (0-4) /hpf Urine Bacteria Occasional H (None) /hpf Urine Mucus Moderate H (None) /hpf Trichomonas Ag (Rapid) Negative (Negative) Blood Type Blood Type Recheck - Radiology Data Radiology results: report reviewed, image reviewed Ultrasound was obtained, report was reviewed in its entirety, impression by Dr. Guaman shows uterus is empty. No evidence of a gestational sac. There is a mild amount of free fluid in the cul-de-sac. Right ovarian cyst is noted. Disposition Clinical Impression: Threatened miscarriage, Vaginal bleeding affecting early Disposition: HOME SELF-CARE Condition: Good Instructions: Threatened Miscarriage (ED), First Trimester Vaginal Bleed (ED) Additional Instructions: Return in 3 days for repeat lab work. Follow-up with your [employer] as soon as possible. Return here immediately for any new, worsening, or concerning symptoms. Referrals: Leticia Lynne MD [Primary Care Provider] - 1-2 days Time of Disposition: 19:06
[2017-10-18 18:11] LABS: Basophils % (A) 0 %; Eosinophils # (A) 0.2 k/uL (0-0.7); Eosinophils % (A) 4 %; HCT 39.8 % (34.0-46.0); HGB 12.2 gm/dL (11.4-16.0); Lymphocytes # (A) 2.3 k/uL (1.0-4.8); Lymphocytes % (A) 34 %; MCH 29.7 pg (25.0-35.0); MCHC 30.6 g/dL (31.0-37.0); MCV 96.9 fL (80.0-100.0); Mean Platelet Volume 9.2; Monocytes # (A) 0.3 k/uL (0-1.0); Monocytes % (A) 5 %; Neutrophils # (A) 3.7 k/uL (1.3-7.7); Neutrophils % (A) 56 %; Platelet Count 132 k/uL (150-450); WBC 6.7 k/uL (3.8-10.6)
[2017-10-18 18:18] LABS: Appearance,Urine Cloudy (Clear); Bacteria,Urine Occasional /hpf; Bilirubin,Urine Negative (Negative); Blood,Urine Moderate (Negative); Color,Urine Yellow; Glucose,Urine (UA) Negative (Negative); Ketones,Urine Negative (Negative); Leukocyte Esterase,Urine Negative (Negative); Mucus,Urine Moderate /hpf; Nitrite,Urine Negative (Negative); PH, Urine 6.5 (5.0-8.0); Protein,Urine Trace (Negative); RBC,Urine 2 /hpf (0-5); Specific Gravity,Urine 1.018 (1.001-1.035); Squamous Epithelial Cell,Urine 7 /hpf (0-4); Urobilinogen,Urine <2.0 mg/dL (<2.0); WBC,Urine 5 /hpf (0-5)
[2017-10-18 18:19] LABS: ALT 20 U/L (9-52); AST 19 U/L (14-36); Albumin 4.1 g/dL (3.5-5.0); Alkaline Phosphatase 44 U/L (38-126); Anion Gap 8 mmol/L; Blood Urea Nitrogen 8 mg/dL (7-17); Calcium 9.7 mg/dL (8.4-10.2); Carbon Dioxide 26 mmol/L (22-30); Chloride 107 mmol/L (98-107); Glucose 82 mg/dL (74-99); Potassium 3.7 mmol/L (3.5-5.1); Sodium 141 mmol/L (137-145); Total Bilirubin 0.2 mg/dL (0.2-1.3); Total Protein 7.1 g/dL (6.3-8.2)
[2017-10-18 18:36] LABS: HCG,Quantitative Serum 1614.1 mIU/mL
--- NOTE | 2017-10-18 18:47 | US ---
EXAMINATION TYPE: US OB <= 14 wk fetus DATE OF EXAM: 10/18/2017 COMPARISON: NONE CLINICAL HISTORY: Pain. Pain EXAM PERFORMED: Transabdominal (TA) EXAM MEASUREMENTS: GESTATIONAL AGE / DATING Physician Established: Not yet established Dates by LMP: LMP unknown Dates by First Scan: No previous this is first scan Dates by Current Scan for: No IUP seen at this time MATERNAL ANATOMY Uterus: 9.6 x 6.0 x 6.4 cm Right Ovary: 3.9 x 3.2 x 3.1 cm Left Ovary: 3.0 x 1.6 x 2.2 cm Post CDS / Adnexa: WNL Presence of free fluid: Yes Presence of corpus luteal cyst: yes GESTATION / SURVEY IUP: No IUP seen at this time, endometrium measures 1.1cm with 0.2cm of fluid seen within. Beta HcG (if available): Not available at this time No IUP seen at this time. Anechoic area with echogenic area seen right ovary measuring 3.0 x 2.4x 2.3 cm. IMPRESSION: The uterus is empty. No evidence of a gestational sac. There is a mild amount of free fluid in the cu l-de-sac. Right ovarian cyst is noted.
[2017-10-18 19:28] VITALS: BP 110/56; PULSE 75; RESP 17; TEMP 98.2
[2017-10-20 14:30] LABS: C. trachomatis,PCR Negative (Neg,Equiv); Chlamydia trachomatis Source Vagina; N. gonorrhoeae,PCR Negative (Neg,Equiv); Neisseria Source Vagina
== END 2017-10-18 19:27 | disposition home or self-care (01) ==
LOC: EC 14:35
DX: O20.0 Threatened abortion (principal); O34.81 Maternal care for other abnormalities of pelvic organs, first trimester; N83.201 Unspecified ovarian cyst, right side; O99.331 Smoking (tobacco) complicating pregnancy, first trimester; F17.200 Nicotine dependence, unspecified, uncomplicated; Z3A.01 Less than 8 weeks gestation of pregnancy; Z53.29 Procedure and treatment not carried out because of patient's decision for other reasons
CPT/HCPCS: 36415; 76801; 80053; 81001; 84702; 85025; 86900; 86901; 87070; 87086; 87205; 87491; 87591; 87808; 96360; 99284

== ENCOUNTER → 2017-10-21 | Outpatient (CLI) | payer OTHER | END | disposition home or self-care (01) | LOC: LABWHC1 10:40 | PROVIDERS: ATTEND Nurse Practitioner | DX: O20.8 Other hemorrhage in early pregnancy (principal); Z3A.00 Weeks of gestation of pregnancy not specified | CPT/HCPCS: 36415; 84702 ==

== ENCOUNTER 2018-02-17 21:40 | Emergency (ER) | payer OTHER ==
[2018-02-17 21:57] VITALS: RESP 16
[2018-02-17 22:59] LABS: Basophils % (A) 0 %; Eosinophils # (A) 0.3 k/uL (0-0.7); Eosinophils % (A) 3 %; HCT 36.9 % (34.0-46.0); HGB 12.2 gm/dL (11.4-16.0); Lymphocytes # (A) 2.8 k/uL (1.0-4.8); Lymphocytes % (A) 29 %; MCHC 32.9 g/dL (31.0-37.0); MCV 94.2 fL (80.0-100.0); Mean Platelet Volume 9.2; Monocytes # (A) 0.5 k/uL (0-1.0); Monocytes % (A) 5 %; Neutrophils # (A) 5.7 k/uL (1.3-7.7); Neutrophils % (A) 61 %; Platelet Count 144 k/uL (150-450); RBC 3.92 m/uL (3.80-5.40); WBC 9.4 k/uL (3.8-10.6)
[2018-02-17 23:06] LABS: Appearance,Urine Clear (Clear); Bilirubin,Urine Negative (Negative); Blood,Urine Negative (Negative); Color,Urine Yellow; Glucose,Urine (UA) Negative (Negative); Ketones,Urine Negative (Negative); Leukocyte Esterase,Urine Negative (Negative); Nitrite,Urine Negative (Negative); PH, Urine 6.5 (5.0-8.0); Protein,Urine Negative (Negative); Specific Gravity,Urine 1.018 (1.001-1.035); Urobilinogen,Urine <2.0 mg/dL (<2.0)
--- NOTE | 2018-02-17 23:08 | ED ---
Female Urogenital HPI - General Chief complaint: Urogenital Stated complaint: early preg/spotting & cramping Time Seen by Provider: 02/17/18 22:26 Source: patient Mode of arrival: ambulatory Limitations: no limitations - History of Present Illness Initial comments: This patient is 22-year-old woman who presents to be evaluated for vaginal spotting. Patient states that she was couple of weeks late on her menstrual cycle and had taken a home test on February 06 which was positive. She states that she had been feeling premature normal until about 20 minutes before arriving here tonight, when she noted some vaginal spotting. The patient states that she had gone to urinate and then when she was wiping she noted some brownish discharge. She states that around that time she had also been having some crampy abdominal pain in the suprapubic and periumbilical area. Given the symptoms she came here to be evaluated. MD Complaint: vaginal bleeding Onset/Timin -: minutes(s) Location: suprapubic Radiation: non-radiating Severity: mild Quality: cramping Consistency: constant Improves with: none Patient : Yes - Related Data Sexually active: Yes Previous Rx's Medication Instructions Recorded Pnv No.95/Ferrous Fum/Folic AC 1 each PO DAILY #30 tablet 02/18/18 [ Multivitamin Tablet] Allergies Allergy/AdvReac Type Severity Reaction Status Date / Time No Known Allergies Allergy Verified 02/17/18 22:19 Review of Systems ROS Statement: Those systems with pertinent positive or pertinent negative responses have been documented in the HPI. ROS Other: All systems not noted in ROS Statement are negative. Constitutional: Denies: fever, chills Respiratory: Denies: cough, dyspnea Cardiovascular: Denies: chest pain, palpitations Gastrointestinal: Reports: as per HPI, abdominal pain. Denies: nausea, vomiting , diarrhea Genitourinary: Reports: discharge. Denies: dysuria, frequency, hematuria Musculoskeletal: Denies: back pain Skin: Denies: rash Neurological: Denies: headache Hematological/Lymphatic: Denies: easy bleeding Past Medical History Past Medical History: No Reported History History of Any Multi-Drug Resistant Organisms: None Reported Past Surgical History: No Surgical Hx Reported Past Psychological History: No Psychological Hx Reported Smoking Status: Current every day smoker Past Alcohol Use History: Occasional Past Drug Use History: None Reported General Exam Limitations: no limitations General appearance: alert, in no apparent distress Head exam: Present: atraumatic, normocephalic ENT exam: Present: normal oropharynx Respiratory exam: Present: normal lung sounds bilaterally. Absent: respiratory distress, wheezes, rales, rhonchi, stridor Cardiovascular Exam: Present: regular rate, normal rhythm, normal heart sounds. Absent: systolic murmur, diastolic murmur, rubs, gallop GI/Abdominal exam: Present: soft. Absent: distended, tenderness, guarding, rebound, mass External exam: Present: normal external exam, other (YARI Mcneill present). Absent : erythema, swelling, lesions, lacerations, ecchymosis Speculum exam: Present: other (Trace of brown blood present on exam. Cervix is closed. No tissue. No red blood or clotting). Absent: erythema, foreign body By manual exam: Present: uterine enlargement. Absent: cervical motion tenderness, adnexal tenderness, adnexal mass, uterine tenderness Extremities exam: Present: normal inspection, normal capillary refill. Absent: pedal edema, calf tenderness Back exam: Present: normal inspection. Absent: CVA tenderness (R), CVA tenderness (L) Skin exam: Present: warm, dry, intact, normal color. Absent: rash Course Vital Signs 02/17/18 21:53 Temperature 98.6 F Pulse Rate 75 Respiratory 16 Rate Blood Pressure 111/60 O2 Sat by Pulse 100 Oximetry Medical Decision Making - Lab Data Result diagrams: 02/17/18 22:47 02/17/18 22:47 Lab Results 02/17/18 02/17/18 02/17/18 Range/Units 22:47 22:47 22:47 WBC 9.4 (3.8-10.6) k/uL RBC 3.92 (3.80-5.40) m/uL Hgb 12.2 (11.4-16.0) gm/dL Hct 36.9 (34.0-46.0) % MCV 94.2 (80.0-100.0) fL MCH 31.0 (25.0-35.0) pg MCHC 32.9 (31.0-37.0) g/dL RDW 12.0 (11.5-15.5) % Plt Count 144 L (150-450) k/uL Neutrophils % 61 % Lymphocytes % 29 % Monocytes % 5 % Eosinophils % 3 % Basophils % 0 % Neutrophils # 5.7 (1.3-7.7) k/uL Lymphocytes # 2.8 (1.0-4.8) k/uL Monocytes # 0.5 (0-1.0) k/uL Eosinophils # 0.3 (0-0.7) k/uL Basophils # 0.0 (0-0.2) k/uL Sodium 139 (137-145) mmol/L Potassium 4.0 (3.5-5.1) mmol/L Chloride 105 (98-107) mmol/L Carbon Dioxide 22 (22-30) mmol/L Anion Gap 12 mmol/L BUN 10 (7-17) mg/dL Creatinine 0.65 (0.52-1.04) mg/dL Est GFR (CKD-EPI)AfAm >90 (>60 ml/min/1.73 sqM) Est GFR (CKD-EPI)NonAf >90 (>60 ml/min/1.73 sqM) Glucose 84 (74-99) mg/dL Calcium 9.1 (8.4-10.2) mg/dL Total Bilirubin 0.2 (0.2-1.3) mg/dL AST 23 (14-36) U/L ALT 31 (9-52) U/L Alkaline Phosphatase 41 (38-126) U/L Total Protein 6.8 (6.3-8.2) g/dL Albumin 4.1 (3.5-5.0) g/dL HCG, Quant 97788.9 mIU/mL Urine Color Urine Appearance (Clear) Urine pH (5.0-8.0) Ur Specific [place] (1.001-1.035) Urine Protein (Negative) Urine Glucose (UA) (Negative) Urine Ketones (Negative) Urine Blood (Negative) Urine Nitrite (Negative) Urine Bilirubin (Negative) Urine Urobilinogen (<2.0) mg/dL Ur Leukocyte Esterase (Negative) Blood Type A Positive Blood Type Recheck No 02/17/18 Range/Units 22:47 WBC (3.8-10.6) k/uL RBC (3.80-5.40) m/uL Hgb (11.4-16.0) gm/dL Hct (34.0-46.0) % MCV (80.0-100.0) fL MCH (25.0-35.0) pg MCHC (31.0-37.0) g/dL RDW (11.5-15.5) % Plt Count (150-450) k/uL Neutrophils % % Lymphocytes % % Monocytes % % Eosinophils % % Basophils % % Neutrophils # (1.3-7.7) k/uL Lymphocytes # (1.0-4.8) k/uL Monocytes # (0-1.0) k/uL Eosinophils # (0-0.7) k/uL Basophils # (0-0.2) k/uL Sodium (137-145) mmol/L Potassium (3.5-5.1) mmol/L Chloride (98-107) mmol/L Carbon Dioxide (22-30) mmol/L Anion Gap mmol/L BUN (7-17) mg/dL Creatinine (0.52-1.04) mg/dL Est GFR (CKD-EPI)AfAm (>60 ml/min/1.73 sqM) Est GFR (CKD-EPI)NonAf (>60 ml/min/1.73 sqM) Glucose (74-99) mg/dL Calcium (8.4-10.2) mg/dL Total Bilirubin (0.2-1.3) mg/dL AST (14-36) U/L ALT (9-52) U/L Alkaline Phosphatase (38-126) U/L Total Protein (6.3-8.2) g/dL Albumin (3.5-5.0) g/dL HCG, Quant mIU/mL Urine Color Yellow Urine Appearance Clear (Clear) Urine pH 6.5 (5.0-8.0) Ur Specific [place] 1.018 (1.001-1.035) Urine Protein Negative (Negative) Urine Glucose (UA) Negative (Negative) Urine Ketones Negative (Negative) Urine Blood Negative (Negative) Urine Nitrite Negative (Negative) Urine Bilirubin Negative (Negative) Urine Urobilinogen <2.0 (<2.0) mg/dL Ur Leukocyte Esterase Negative (Negative) Blood Type Blood Type Recheck Disposition Clinical Impression: Threatened miscarriage Disposition: HOME SELF-CARE Condition: Fair Instructions: Threatened Miscarriage (ED) Prescriptions: Pnv No.95/Ferrous Fum/Folic AC [ Multivitamin Tablet] 1 each PO DAILY # 30 tablet Is patient prescribed a controlled substance at d/c from ED?: No Referrals: Sun Perales MD [REFERRING] - 1-2 days Silvia Bejarano DO [Doctor of Osteopathic Medicine] - 1-2 days
[2018-02-17 23:11] LABS: ALT 31 U/L (9-52); AST 23 U/L (14-36); Albumin 4.1 g/dL (3.5-5.0); Alkaline Phosphatase 41 U/L (38-126); Anion Gap 12 mmol/L; Blood Urea Nitrogen 10 mg/dL (7-17); Calcium 9.1 mg/dL (8.4-10.2); Carbon Dioxide 22 mmol/L (22-30); Chloride 105 mmol/L (98-107); Glucose 84 mg/dL (74-99); Sodium 139 mmol/L (137-145); Total Bilirubin 0.2 mg/dL (0.2-1.3); Total Protein 6.8 g/dL (6.3-8.2)
[2018-02-17 23:51] LABS: HCG,Quantitative Serum 34040.9 mIU/mL
--- NOTE | 2018-02-18 00:55 | US ---
EXAMINATION TYPE: Transabdominal DATE OF EXAM: 12/07/17 COMPARISON: NONE CLINICAL HISTORY: Pain. Cramping EXAM PERFORMED: Transabdominal (TA) EXAM MEASUREMENTS: GESTATIONAL AGE / DATING Physician Established: Not yet established Dates by LMP: (5 weeks/6 days) EDC: 10/15/2018 Dates by First Scan: No previous this is first scan Dates by Current Scan for: ( 6 weeks/0 days) EDC: 10/14/2018 MATERNAL ANATOMY Uterus: 9.8 x 5.1 x 6.1 cm Right Ovary: Obscured by bowel gas Left Ovary: Obscured by bowel gas Post CDS / Adnexa: wnl Presence of free fluid: no Presence of subchorionic bleed: no GESTATION / SURVEY CRL: 0.36 cm (6 weeks/0 days) Yolk Sac (normal less than 6mm): 4mm Heart Rate: 144 bpm Rhythm: Normal IUP: Viable IUP Beta HcG (if available): 93308.9 Viable IUP 6w 0d [id number] 10/15/2018 HR 144 BPM IMPRESSION: The ultrasound gestational age is 6 weeks. No complicating process seen.
[2018-02-18 01:36] VITALS: BP 100/56; PULSE 76; TEMP 98.1
== END 2018-02-18 01:34 | disposition home or self-care (01) ==
LOC: EC 21:40
DX: O20.0 Threatened abortion (principal); O99.89 Other specified diseases and conditions complicating pregnancy, childbirth and the puerperium; N85.2 Hypertrophy of uterus; O99.331 Smoking (tobacco) complicating pregnancy, first trimester; F17.200 Nicotine dependence, unspecified, uncomplicated; Z3A.01 Less than 8 weeks gestation of pregnancy
CPT/HCPCS: 36415; 76801; 80053; 81003; 84702; 85025; 86900; 86901; 99284

== ENCOUNTER 2018-02-23 12:27 | Emergency (ER) | payer OTHER ==
[2018-02-23 12:51] VITALS: BP 95/66; PULSE 78; RESP 16; TEMP 97.8
[2018-02-23 14:18] LABS: Appearance,Urine Clear (Clear); Bilirubin,Urine Negative (Negative); Blood,Urine Negative (Negative); Color,Urine Yellow; Glucose,Urine (UA) Negative (Negative); Ketones,Urine Negative (Negative); Leukocyte Esterase,Urine Negative (Negative); Nitrite,Urine Negative (Negative); Protein,Urine Trace (Negative)
--- NOTE | 2018-02-23 14:31 | US ---
EXAMINATION TYPE: Transabdominal DATE OF EXAM: 12/07/17 COMPARISON: US 02/18/2018 CLINICAL HISTORY: Pain. Spotting. Patient states she had a tick behind her ear EXAM PERFORMED: Transabdominal (TA) EXAM MEASUREMENTS: GESTATIONAL AGE / DATING Physician Established: Not yet established Dates by LMP: (6 weeks/4 days) EDC: 10/15/2018 Dates by First Scan: (6 weeks/3 days) EDC: 10/14/2018 Dates by Current Scan for: (6 weeks/4 days) EDC: 10/15/2018 MATERNAL ANATOMY Uterus: 9.1 x 5.8 x 6.2 cm Right Ovary: 2.0 x 1.0 x 1.4 cm Left Ovary: 3.8 x 2.4 x 2.6 cm Post CDS / Adnexa: wnl Presence of free fluid: No Presence of corpus luteal cyst: Yes, left ovary measuring 2.5 x 1.6 x 2.1 cm Presence of subchorionic bleed: Yes, measuring 1.0 x 0.3 x 0.3 cm GESTATION / SURVEY CRL: 0.7 cm (6 weeks/4 days) Yolk Sac (normal less than 6mm): 2mm Heart Rate: 141 bpm Rhythm: Normal IUP: Viable IUP Date of LMP: 01/08/2018 Beta HcG (if available): 34,[id number] on 02/17/2018 Viable IUP, measurements consistent with dates. IMPRESSION: 1. Single intrauterine gestation estimated at 6 weeks 4 days gestation based on current ultrasound. T his would've a calculated EDC of 05/26/2017.
[2018-02-23 14:42] LABS: Basophils % (A) 0 %; Eosinophils # (A) 0.2 k/uL (0-0.7); Eosinophils % (A) 2 %; HCT 32.9 % (34.0-46.0); HGB 11.3 gm/dL (11.4-16.0); Lymphocytes # (A) 1.8 k/uL (1.0-4.8); Lymphocytes % (A) 21 %; MCH 31.1 pg (25.0-35.0); MCHC 34.3 g/dL (31.0-37.0); MCV 90.9 fL (80.0-100.0); Mean Platelet Volume 9.3; Monocytes # (A) 0.5 k/uL (0-1.0); Monocytes % (A) 5 %; Neutrophils # (A) 6.2 k/uL (1.3-7.7); Neutrophils % (A) 70 %; Platelet Count 127 k/uL (150-450); RBC 3.61 m/uL (3.80-5.40); WBC 8.8 k/uL (3.8-10.6)
--- NOTE | 2018-02-23 14:47 | ED ---
Female Urogenital HPI - General Chief complaint: Vaginal Bleeding Stated complaint: 6 wks preg/vaginal bleeding & tick behind ear Time Seen by Provider: 02/23/18 13:03 Source: patient, RN notes reviewed, old records reviewed Mode of arrival: ambulatory Limitations: no limitations - History of Present Illness Initial comments: 27-year-old female presents emergency Department chief complaint of vaginal bleeding more heavy over the past day. She reports that she follows with Dr. Perales. She had testing DONE 1 WEEK AGO. SHE REPORTS THAT HER BLEEDING HAS BEEN PROGRESSIVE TODAY. DENIES ANY FEVER OR CHILLS. SHE ALSO IS CONCERNED THAT SHE WAS BIT BY A TICK BITE HER RIGHT EAR. THE TICK WAS REMOVED. SHE does not know how long it was there. DENIES ANY RASHES FEVERS OR CHILLS. - Related Data Home Medications Medication Instructions Recorded Confirmed No Known Home Medications [No 02/23/18 02/23/18 Known Home Medications] Allergies Allergy/AdvReac Type Severity Reaction Status Date / Time No Known Allergies Allergy Verified 02/23/18 13:09 Review of Systems ROS Statement: Those systems with pertinent positive or pertinent negative responses have been documented in the HPI. ROS Other: All systems not noted in ROS Statement are negative. Past Medical History Past Medical History: No Reported History History of Any Multi-Drug Resistant Organisms: None Reported Past Surgical History: No Surgical Hx Reported Past Psychological History: No Psychological Hx Reported Smoking Status: Current every day smoker Past Alcohol Use History: Occasional Past Drug Use History: None Reported General Exam - General Exam Comments Initial Comments: 27-year-old female. Alert and oriented. No significant distress. Limitations: no limitations General appearance: alert, in no apparent distress Head exam: Present: atraumatic, normocephalic, normal inspection Eye exam: Present: normal appearance, PERRL, EOMI. Absent: scleral icterus, conjunctival injection, periorbital swelling ENT exam: Present: normal exam, mucous membranes moist Neck exam: Present: normal inspection. Absent: tenderness, meningismus, lymphadenopathy Respiratory exam: Present: normal lung sounds bilaterally. Absent: respiratory distress, wheezes, rales, rhonchi, stridor Cardiovascular Exam: Present: regular rate, normal rhythm, normal heart sounds. Absent: systolic murmur, diastolic murmur, rubs, gallop, clicks GI/Abdominal exam: Present: soft, normal bowel sounds. Absent: distended, tenderness, guarding, rebound, rigid External exam: Present: normal external exam Speculum exam: Present: vaginal bleeding. Absent: normal speculum exam By manual exam: Present: normal by manual exam. Absent: cervical motion tenderness Extremities exam: Present: normal inspection, full ROM, normal capillary refill. Absent: tenderness, pedal edema, joint swelling, calf tenderness Back exam: Present: normal inspection Neurological exam: Present: alert, oriented X3, CN II-XII intact Psychiatric exam: Present: normal affect, normal mood Skin exam: Present: warm, dry, intact, normal color. Absent: rash Course Vital Signs 02/23/18 12:49 Temperature 97.8 F Pulse Rate 78 Respiratory 16 Rate Blood Pressure 95/66 O2 Sat by Pulse 100 Oximetry Medical Decision Making - Medical Decision Making 27 year old whom is 6 weeks present presents with worsening vaginal bleeding. Patient follows with Dr. Douglass. Patient US shows viable IUP measuring 6 weeks and 4 days, patient does have vaginal bleeding. She is Rh positive. Patient hcg quant is pending, to compare from last visit. She left AMA without finding out serum HCG. - Lab Data Result diagrams: 02/23/18 14:27 02/23/18 14:27 Lab Results 02/23/18 02/23/18 02/23/18 Range/Units 14:00 14:00 14:27 WBC (3.8-10.6) k/uL RBC (3.80-5.40) m/uL Hgb (11.4-16.0) gm/dL Hct (34.0-46.0) % MCV (80.0-100.0) fL MCH (25.0-35.0) pg MCHC (31.0-37.0) g/dL RDW (11.5-15.5) % Plt Count (150-450) k/uL Neutrophils % % Lymphocytes % % Monocytes % % Eosinophils % % Basophils % % Neutrophils # (1.3-7.7) k/uL Lymphocytes # (1.0-4.8) k/uL Monocytes # (0-1.0) k/uL Eosinophils # (0-0.7) k/uL Basophils # (0-0.2) k/uL Sodium (137-145) mmol/L Potassium (3.5-5.1) mmol/L Chloride (98-107) mmol/L Carbon Dioxide (22-30) mmol/L Anion Gap mmol/L BUN (7-17) mg/dL Creatinine (0.52-1.04) mg/dL Est GFR (CKD-EPI)AfAm (>60 ml/min/1.73 sqM) Est GFR (CKD-EPI)NonAf (>60 ml/min/1.73 sqM) Glucose (74-99) mg/dL Calcium (8.4-10.2) mg/dL Total Bilirubin (0.2-1.3) mg/dL AST (14-36) U/L ALT (9-52) U/L Alkaline Phosphatase (38-126) U/L Total Protein (6.3-8.2) g/dL Albumin (3.5-5.0) g/dL HCG, Quant mIU/mL Urine Color Yellow Urine Appearance Clear (Clear) Urine pH 6.0 (5.0-8.0) Ur Specific [place] 1.030 (1.001-1.035) Urine Protein Trace H (Negative) Urine Glucose (UA) Negative (Negative) Urine Ketones Negative (Negative) Urine Blood Negative (Negative) Urine Nitrite Negative (Negative) Urine Bilirubin Negative (Negative) Urine Urobilinogen 3.0 (<2.0) mg/dL Ur Leukocyte Esterase Negative (Negative) Trichomonas Ag (Rapid) Negative (Negative) Blood Type A Positive Blood Type Recheck No 02/23/18 02/23/18 Range/Units 14:27 14:27 WBC 8.8 (3.8-10.6) k/uL RBC 3.61 L (3.80-5.40) m/uL Hgb 11.3 L (11.4-16.0) gm/dL Hct 32.9 L (34.0-46.0) % MCV 90.9 (80.0-100.0) fL MCH 31.1 (25.0-35.0) pg MCHC 34.3 (31.0-37.0) g/dL RDW 12.0 (11.5-15.5) % Plt Count 127 L (150-450) k/uL Neutrophils % 70 % Lymphocytes % 21 % Monocytes % 5 % Eosinophils % 2 % Basophils % 0 % Neutrophils # 6.2 (1.3-7.7) k/uL Lymphocytes # 1.8 (1.0-4.8) k/uL Monocytes # 0.5 (0-1.0) k/uL Eosinophils # 0.2 (0-0.7) k/uL Basophils # 0.0 (0-0.2) k/uL Sodium 138 (137-145) mmol/L Potassium 4.1 (3.5-5.1) mmol/L Chloride 107 (98-107) mmol/L Carbon Dioxide 23 (22-30) mmol/L Anion Gap 8 mmol/L BUN 9 (7-17) mg/dL Creatinine 0.60 (0.52-1.04) mg/dL Est GFR (CKD-EPI)AfAm >90 (>60 ml/min/1.73 sqM) Est GFR (CKD-EPI)NonAf >90 (>60 ml/min/1.73 sqM) Glucose 75 (74-99) mg/dL Calcium 9.2 (8.4-10.2) mg/dL Total Bilirubin 0.2 (0.2-1.3) mg/dL AST 19 (14-36) U/L ALT 33 (9-52) U/L Alkaline Phosphatase 35 L (38-126) U/L Total Protein 6.4 (6.3-8.2) g/dL Albumin 3.7 (3.5-5.0) g/dL HCG, Quant 45576.0 mIU/mL Urine Color Urine Appearance (Clear) Urine pH (5.0-8.0) Ur Specific [place] (1.001-1.035) Urine Protein (Negative) Urine Glucose (UA) (Negative) Urine Ketones (Negative) Urine Blood (Negative) Urine Nitrite (Negative) Urine Bilirubin (Negative) Urine Urobilinogen (<2.0) mg/dL Ur Leukocyte Esterase (Negative) Trichomonas Ag (Rapid) (Negative) Blood Type Blood Type Recheck - Radiology Data Radiology results: report reviewed Ultrasound shows single IUP he estimates 6 weeks and 4 days. Calculated EDC of 05/26/2017. Heart rate of 1 41 bpm. Disposition Clinical Impression: Threatened miscarriage Disposition: Left Against Medical Advice Condition: Stable Is patient prescribed a controlled substance at d/c from ED?: No Referrals: Leticia Lynne MD [Primary Care Provider] - 1-2 days Time of Disposition: 08:11
[2018-02-23 14:51] LABS: ALT 33 U/L (9-52); AST 19 U/L (14-36); Albumin 3.7 g/dL (3.5-5.0); Alkaline Phosphatase 35 U/L (38-126); Anion Gap 8 mmol/L; Blood Urea Nitrogen 9 mg/dL (7-17); Calcium 9.2 mg/dL (8.4-10.2); Carbon Dioxide 23 mmol/L (22-30); Chloride 107 mmol/L (98-107); Glucose 75 mg/dL (74-99); Potassium 4.1 mmol/L (3.5-5.1); Sodium 138 mmol/L (137-145); Total Bilirubin 0.2 mg/dL (0.2-1.3); Total Protein 6.4 g/dL (6.3-8.2)
[2018-02-24 15:52] LABS: C. trachomatis,PCR Negative (Neg,Equiv); Chlamydia trachomatis Source Vagina; N. gonorrhoeae,PCR Negative (Neg,Equiv); Neisseria Source Vagina
== END 2018-02-23 15:20 | disposition left against medical advice (07) ==
LOC: EC 12:27
DX: O20.0 Threatened abortion (principal); O99.331 Smoking (tobacco) complicating pregnancy, first trimester; F17.200 Nicotine dependence, unspecified, uncomplicated; O9A.211 Injury, poisoning and certain other consequences of external causes complicating pregnancy, first trimester; S00.471A Other superficial bite of right ear, initial encounter; Z3A.01 Less than 8 weeks gestation of pregnancy; W57.XXXA Bitten or stung by nonvenomous insect and other nonvenomous arthropods, initial encounter
CPT/HCPCS: 36415; 76801; 80053; 81003; 84702; 85025; 86900; 86901; 87070; 87205; 87491; 87591; 87808; 99284

== ENCOUNTER 2020-05-04 17:04 | Emergency (ER) | payer OTHER ==
[2020-05-04 17:09] VITALS: BP 91/57; PULSE 93; RESP 16; TEMP 98.5
--- NOTE | 2020-05-04 17:20 | ED ---
ENT HPI - General Chief complaint: ENT Stated complaint: rt ear pain Time Seen by Provider: 05/04/20 17:11 Source: patient Mode of arrival: ambulatory Limitations: no limitations - History of Present Illness Initial comments: 29yo female diagnosed 2 days ago with otitis externa presents emergency department today for chief complaint of persistent right ear pain. Patient states she has pain with pulling of the right ear or any touching of the external ear. She states she was diagnosed 2 days ago with otitis externa she states she was on drops. Patient states she thought she was supposed to be on oral antibiotics and was concerned she was not being treated appropriately. Patient states she continues to have pain is concerned the drops are not w orking. Review systems negative patient denies any history of diabetes she denies any posterior ear pain remaining review of system negative - Related Data Previous Rx's Medication Instructions Recorded Amoxicillin 500 mg PO Q8H 7 Days #21 capsule 05/04/20 Ofloxacin 0.3% Otic Soln [Floxin 5 drops RIGHT EAR BID 7 Days #100 05/04/20 0.3% Otic Soln] ml Allergies Allergy/AdvReac Type Severity Reaction Status Date / Time No Known Allergies Allergy Verified 02/23/18 13:09 Review of Systems ROS Statement: Those systems with pertinent positive or pertinent negative responses have been documented in the HPI. ROS Other: All systems not noted in ROS Statement are negative. Past Medical History Past Medical History: No Reported History History of Any Multi-Drug Resistant Organisms: None Reported Past Surgical History: No Surgical Hx Reported Past Psychological History: No Psychological Hx Reported Smoking Status: Current every day smoker Past Alcohol Use History: Occasional Past Drug Use History: None Reported General Exam - General Exam Comments Initial Comments: General: The patient is awake and alert, in no distress, and does not appear acutely ill. Eye: Pupils are equal, round and reactive to light, extra-ocular movements are intact. No nystagmus. There is normal conjunctiva bilaterally. No signs of icterus. Ears, nose, mouth and throat: There are moist mucous membranes and no oral lesions. TM not visualized on right side secondary to mild to moderatley swollen EAC, no significant redness no drainage noted. No odors. Pain to pull of auricle. no external swelling. Neck: The neck is supple, there is no tenderness or JVD. Musculoskeletal: Normal ROM, no tenderness. Strength 5/5. Sensation intact. Pulses equal bilaterally 2+. Neurological: A&O x 3. CN II-XII intact, There are no obvious motor or sensory deficits. Coordination appears grossly intact. Speech is normal. Skin: Skin is warm and dry and no rashes or lesions are noted. Psychiatric: Cooperative, appropriate mood & affect, normal judgment. Limitations: no limitations Course Vital Signs 05/04/20 17:07 Temperature 98.5 F Pulse Rate 93 Respiratory 16 Rate Blood Pressure 91/57 O2 Sat by Pulse 98 Oximetry Medical Decision Making - Medical Decision Making PE findings are consistent with otitis externa patient is nondiabetic. This appears to be mild to moderate case. Due to swelling I have concerned possibly that ear drops are not penetrating as they should patient had ear wick placed in the ear. She was prescribed more drops as she states she was only given a starting prescription. As I cannot see the TM will treat with oral antibiotics as well. Patient is to f/u with PCP, return to ER for rapidly worsening symptons, external ear swelling/redness, posterior ear pain or fevers. Patient case discussed with Dr. Mai who is agreeable to care plan and discharge. Disposition Clinical Impression: Otitis externa of right ear, Right ear pain Disposition: HOME SELF-CARE Condition: Good Instructions (If sedation given, give patient instructions): Otitis Externa (ED) Additional Instructions: Please use medication as discussed. Please follow-up with family doctor in the next 2 days. Please return to emergency room if the symptoms increase or worsen or for any other concerns. Prescriptions: Amoxicillin 500 mg PO Q8H 7 Days #21 capsule Ofloxacin 0.3% Otic Soln [Floxin 0.3% Otic Soln] 5 drops RIGHT EAR BID 7 Days #100 ml Is patient prescribed a controlled substance at d/c from ED?: No Referrals: Paola Rodriguez MD [Primary Care Provider] - 1-2 days Time of Disposition: 17:20
== END 2020-05-04 17:40 | disposition home or self-care (01) ==
LOC: EC 17:04
DX: H60.91 Unspecified otitis externa, right ear (principal); F17.200 Nicotine dependence, unspecified, uncomplicated
CPT/HCPCS: 99282

== ENCOUNTER 2023-06-15 16:46 | Emergency (ER) | payer OTHER ==
[2023-06-15 17:28] VITALS: BP 101/63; PULSE 89; RESP 18; TEMP 98
--- NOTE | 2023-06-15 17:59 | ED ---
Female Urogenital HPI - General Source: patient, RN notes reviewed Mode of arrival: ambulatory Limitations: no limitations <Micha Rush - Last Filed: 06/15/23 17:55> - General Source: patient, RN notes reviewed Mode of arrival: ambulatory Limitations: no limitations <Dru Andrew - Last Filed: 06/15/23 22:45> - General Chief complaint: Vaginal Bleeding Stated complaint: 7wks preg spotting, low back pain Time Seen by Provider: 06/15/23 17:58 - History of Present Illness Initial comments: 33-year-old female presents emergency Department chief complaint of vaginal bleeding early . Patient states some spotting for several days. Patient states she also has vaginal discharge. Patient does not have a current CASE MANAGEMENT SOCIAL WORKER. 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 She believes this is her eighth (Micha Rush) Patient is a pleasant 33-year-old female presenting to the emergency Department with concerns for spotting. Patient believes she is around 7 weeks . Patient has had some mild spotting over the past one week. Patient does feel associated mild cramping with this. No symptoms at this time. Patient states this is her eighth . Patient states she did have one previous miscarriage. (Dru Andrew) - Related Data Previous Rx's Medication Instructions Recorded Amoxicillin 500 mg PO Q8H 7 Days #21 capsule 05/04/20 Ofloxacin 0.3% Otic Soln [Floxin 5 drops RIGHT EAR BID 7 Days #100 05/04/20 0.3% Otic Soln] ml Allergies Allergy/AdvReac Type Severity Reaction Status Date / Time No Known Allergies Allergy Verified 06/15/23 17:20 Review of Systems ROS Other: All systems not noted in ROS Statement are negative. <Micha Rush - Last Filed: 06/15/23 17:55> ROS Other: All systems not noted in ROS Statement are negative. Constitutional: Denies: fever Eyes: Denies: eye pain ENT: Denies: ear pain Respiratory: Denies: cough, dyspnea Cardiovascular: Denies: chest pain Endocrine: Denies: fatigue Gastrointestinal: Denies: vomiting Genitourinary: Reports: as per HPI Musculoskeletal: Denies: back pain Skin: Denies: rash Neurological: Denies: weakness <Dru Andrew - Last Filed: 06/15/23 22:45> ROS Statement: Those systems with pertinent positive or pertinent negative responses have been documented in the HPI. Past Medical History Past Medical History: No Reported History History of Any Multi-Drug Resistant Organisms: None Reported Past Surgical History: No Surgical Hx Reported Past Psychological History: No Psychological Hx Reported Smoking Status: Current every day smoker Past Alcohol Use History: Occasional Past Drug Use History: None Reported <Micha Rush - Last Filed: 06/15/23 17:55> General Exam Limitations: no limitations <Micha Rush - Last Filed: 06/15/23 17:55> Limitations: no limitations General appearance: alert, in no apparent distress Head exam: Present: normocephalic Respiratory exam: Present: normal lung sounds bilaterally Cardiovascular Exam: Present: regular rate, normal rhythm GI/Abdominal exam: Present: soft. Absent: tenderness External exam: Present: normal external exam (RN present for exam) Speculum exam: Present: normal speculum exam By manual exam: Present: normal by manual exam Extremities exam: Present: normal inspection Neurological exam: Present: alert Psychiatric exam: Present: normal affect, normal mood Skin exam: Present: normal color <Dru Andrew - Last Filed: 06/15/23 22:45> - General Exam Comments Initial Comments: Visual Physical Exam Vital signs reviewed General: Well-appearing, nontoxic, no acute distress. Head: Normocephalic, atraumatic Eyes: PERRLA, EOMI ENT: Airway patent Chest: Nonlabored breathing Skin: No visual rash, normal skin tone Neuro: Alert and oriented 3 Musculoskeletal: No gross abnormalities (Micha Rush) Course Vital Signs 06/15/23 06/15/23 17:17 21:35 Temperature 98.0 F Pulse Rate 89 Respiratory 18 18 Rate Blood Pressure 101/63 O2 Sat by Pulse 100 Oximetry Medical Decision Making <Micha Rush - Last Filed: 06/15/23 17:55> <Dru Andrew - Last Filed: 06/15/23 22:45> - Medical Decision Making I completed the quick note portion of this chart Signed Micha Rich PA-C) Was pt. sent in by a medical professional or institution (, PA, INFRASTRUCTURE TECHNICIAN, urgent care, hospital, or intermediate...) When possible be specific @ -No Did you speak to anyone other than the patient for history (EMS, parent, family, police, friend...)? What history was obtained from this source @ -No Did you review nursing and triage notes (agree or disagree)? Why? @ -I reviewed and agree with nursing and triage notes Were old charts reviewed (outside hosp., previous admission, EMS record, old EKG, old radiological studies, urgent care reports/EKG's, intermediate records)? Report findings @ -No old charts were reviewed Differential Diagnosis (chest pain, altered mental status, abdominal pain women, abdominal pain men, vaginal bleeding, weakness, fever, dyspnea, syncope, headache, dizziness, GI bleed, back pain, seizure, CVA, palpatations, mental health, musculoskeletal)? @ -Differential Abdominal Pain Women: Appendicitis, Cholecystitis, diverticulosis, ischemic bowel, pancreatitis, hepatitis, UTI, gastroenteritis, AAA, incarcerated hernia, bowel obstruction, constipation, inflammatory bowel, hepatitis, peptic ulcer disease, splenic infarction, perforated viscus, vulvitis, ovarian torsion, PID, kidney stone, placenta abruption, this is not meant to be an all-inclusive list EKG interpreted by me (3pts min.). @ -As above X-rays interpreted by me (1pt min.). @ -None done CT interpreted by me (1pt min.). @ -None done U/S interpreted by me (1pt. min.). @ -Report reviewed What testing was considered but not performed or refused? (CT, X-rays, U/S, labs)? Why? @ -None What meds were considered but not given or refused? Why? @ -None Did you discuss the management of the patient with other professionals (professionals i.e. , PA, INFRASTRUCTURE TECHNICIAN, lab, RT, psych nurse, social work case manager, heat treater head, teacher, aerospace engineer officer armament, social work case manager)? Give summary @ -No Was smoking cessation discussed for >3mins.? @ -No Was critical care preformed (if so, how long)? @ -No Were there social determinants of health that impacted care today? How? (Homelessness, low income, unemployed, alcoholism, drug addiction, transportation, low edu. Level, literacy, decrease access to med. care, fpc, rehab)? @ -No Was there de-escalation of care discussed even if they declined (Discuss DNR or withdrawal of care, Hospice)? DNR status @ -No What co-morbidities impacted this encounter? (DM, HTN, Smoking, COPD, CAD, Cancer, CVA, ARF, Chemo, Hep., AIDS, mental health diagnosis, sleep apnea, morbid obesity)? @ -None Was patient admitted / discharged? Hospital course, mention meds given and route, prescriptions, significant lab abnormalities, going to OR and other pertinent info. @ -Patient reevaluated. Patient updated on results and need for follow-up with CASE MANAGEMENT SOCIAL WORKER. Undiagnosed new problem with uncertain prognosis? @ -No Drug Therapy requiring intensive monitoring for toxicity (Heparin, Nitro, Insulin, Cardizem)? @ -No Were any procedures done? @ -No Diagnosis/symptom? @ -Threatened miscarriage Acute, or Chronic, or Acute on Chronic? @ -Acute Uncomplicated (without systemic symptoms) or Complicated (systemic symptoms)? @ -default Side effects of treatment? @ -No Exacerbation, Progression, or Severe Exacerbation? @ -No Poses a threat to life or bodily function? How? (Chest pain, [place], NM, pneumonia, PE, COPD, DKA, ARF, appy, cholecystitis, CVA, Diverticulitis, Homicidal, Suicidal, threat to staff... and all critical care pts) @ -No (Dru Andrew) - Lab Data Lab Results 06/15/23 06/15/23 06/15/23 Range/Units 18:16 18:16 20:55 HCG, Quant >793705.0 mIU/mL Urine Color Light Yellow Urine Appearance Clear (Clear) Urine pH 5.5 (5.0-8.0) Ur Specific [place] 1.023 (1.001-1.035) Urine Protein Negative (Negative) Urine Glucose (UA) Negative (Negative) Urine Ketones Negative (Negative) Urine Blood Negative (Negative) Urine Nitrite Negative (Negative) Urine Bilirubin Negative (Negative) Urine Urobilinogen <2.0 (<2.0) mg/dL Ur Leukocyte Esterase Negative (Negative) Blood Type A Positive Blood Type Recheck A Pos Bld Type Recheck Status No Disposition <Micha Rush - Last Filed: 06/15/23 17:55> Is patient prescribed a controlled substance at d/c from ED?: No Time of Disposition: 22:45 <Dru Andrew - Last Filed: 06/15/23 22:45> Clinical Impression: Threatened Disposition: HOME SELF-CARE Condition: Stable Instructions (If sedation given, give patient instructions): Threatened Miscarriage (ED) Additional Instructions: Please follow-up with primary care physician and CASE MANAGEMENT SOCIAL WORKER in the next one to 2 days for recheck. Return for pain, bleeding, worsening or changing symptoms or other concerns. Please have your doctor follow-up with cultures done today. Referrals: Paola Rodriguez MD [Primary Care Provider] - 1-2 days Sergo Cristobal MD [STAFF PHYSICIAN] - 1-2 days
[2023-06-15 18:35] LABS: Appearance,Urine Clear (Clear); Bilirubin,Urine Negative (Negative); Blood,Urine Negative (Negative); Color,Urine Light Yellow; Glucose,Urine (UA) Negative (Negative); Ketones,Urine Negative (Negative); Leukocyte Esterase,Urine Negative (Negative); Nitrite,Urine Negative (Negative); PH, Urine 5.5 (5.0-8.0); Protein,Urine Negative (Negative); Specific Gravity,Urine 1.023 (1.001-1.035); Urobilinogen,Urine <2.0 mg/dL (<2.0)
--- NOTE | 2023-06-15 22:34 | US ---
EXAMINATION TYPE: US OB <= 14 wk twins DATE OF EXAM: 06/15/2023 COMPARISON: NONE CLINICAL INDICATION: Female, 33 years old with history of pain; Spotting and cramping x 1 week. EXAM PERFORMED: Transabdominal (TA) EXAM MEASUREMENTS: GESTATIONAL AGE / DATING Physician Established: Not yet established Dates by LMP: 04/26/23 (7 weeks/1 days) EDC: 01/31/24 Dates by First Scan: No previous this is first scan Dates by Current Scan for Baby A: (6 weeks/6 days) EDC: 02/02/24 Dates by Current Scan for Baby B: (7 weeks/0 days) EDC: 02/01/24 MATERNAL ANATOMY Uterus: 11.0 x 9.0 x 7.3cm Right Ovary: 3.7 x 1.7 x 1.7cm Left Ovary: 3.0 x 2.5 x 2.2cm Post CDS / Adnexa: wnl Presence of free fluid: Yes in cul de sac Presence of corpus luteal cyst: Yes in lt ovary measuring 1.7 x 1.5 x 1.2cm Presence of subchorionic bleed: Possibly. Hypoechoic area in between the two gestational sacs Presence of two separate gestational sacs: Yes GESTATION / SURVEY TWIN A CRL: 0.85cm (6wks/6days) MSD: Not measured, appears wnl Yolk Sac (normal less than 6mm): 1.7mm Heart Rate: 145 bpm Rhythm: Normal IUP: Viable IUP TWIN B CRL: 0.95cm (7wks/0days) MSD: Not measured, appears wnl Yolk Sac (normal less than 6mm): 2.5mm Heart Rate: 144 bpm Rhythm: Normal IUP: Viable IUP Date of LMP: 04/26/23 Beta HcG (if available): >070578.0 2 live fetuses with 2 gestational sacs seen. Baby A is measuring 6 weeks 6 days. Baby B is measuring 7 weeks 0days. IMPRESSION: 1. Twin gestation with cardiac activity measures 145 minute twin A and 144 bpm twin B. 2. Twin A estimated gestational age based on crown-rump length is 6 weeks 6 days. 3. Twin B estimated gestational age based on crown-rump length is 7 weeks 0 days. 4. Two gestational sacs each with pole and yolk sac is present.
== END 2023-06-15 23:07 | disposition home or self-care (01) ==
LOC: EC 16:46
DX: O20.0 Threatened abortion (principal); O99.331 Smoking (tobacco) complicating pregnancy, first trimester; F17.200 Nicotine dependence, unspecified, uncomplicated; Z3A.01 Less than 8 weeks gestation of pregnancy
CPT/HCPCS: 36415; 76801; 76802; 81003; 84702; 86900; 86901; 87070; 87491; 87591; 87808; 99284